=== PATIENT | female | born 1970 | race Caucasian/White ===

== ENCOUNTER → 2017-03-14 | Outpatient (CLI) | payer OTHER ==
--- NOTE | 2017-03-15 05:41 | RAD ---
Procedure: XR PELVIS 1-2 VIEWS Exam Date: 03/14/2017 Ordering Provider: ISELA CAUSEY MD Clinical Indication: HIP PAIN Comparison: 10/03/2011 FINDINGS: There is no fracture or dislocation. Articular surface of each hip is preserved. The sacroiliac joints are intact bilaterally. The pubic symphysis is normal. There are no lytic or sclerotic lesions. There are no suspicious calcifications. Impression: 1. Negative exam of the pelvis and each hip. Electronically signed by: Chuck Wolfe MD 03/15/2017 5:40 AM CDT
--- NOTE | 2017-03-15 09:13 | RAD ---
EXAM DESCRIPTION: Knee,Right Complete CLINICAL HISTORY: 46 years, Female, KNEE PAIN COMPARISON: None TECHNIQUE: Three views of the right knee FINDINGS: Right knee demonstrate severe degenerative joint narrowing involving the lateral joint compartment with subchondral sclerosis with moderate hypertrophic degenerative lipping at the patellofemoral articulation with relative sparing of the medial joint compartment. A small joint effusion is present. No fracture or dislocation is seen. IMPRESSION: 1. There are degenerative changes of the right knee, predominantly involving the lateral joint compartment. Electronically signed by: Kaden Starks MD 03/15/2017 9:11 AM CDT
== END | disposition home or self-care (01) ==
LOC: RAD 13:27
PROVIDERS: ATTEND Orthopaedic Surgery
DX: M25.561 Pain in right knee (principal); M25.552 Pain in left hip; M25.551 Pain in right hip

== ENCOUNTER → 2017-05-14 | Outpatient (CLI) | payer OTHER ==
--- NOTE | 2017-05-15 16:31 | MAM ---
EXAM DESCRIPTION: 3D Screening BILATERAL CLINICAL HISTORY: 46 yearsFemaleSCREENING . Premenopause.. COMPARISON: Baseline study at this facility.. No prior reports available. TECHNIQUE: Bilateral CC and MLO projection full-field images, 3-D tomosynthesis digital mammographic technique. Also bilateral synthesized CC/ MLO full-field images. CAD not utilized. FINDINGS: The breast parenchymal density pattern is: Scattered areas of fibroglandular density. No skin thickening or nipple retraction bilateral microcalcifications are solitary. No focal, stellate mass or density, focal asymmetry , and no suspicious microcalcifications bilaterally. IMPRESSION: BI-RADS CATEGORY: 2 - BENIGN FINDINGS. FOLLOW UP: Routine digital bilateral screening, one year interval from date Written communication explaining the findings and follow-up, will be mailed to the patient and referring health care provider. According to the [employer], yearly mammograms are recommended starting at age 40 and continuing as long as a woman is in good health. Any breast change noted on a breast self-exam should be reported promptly to the patient's healthcare provider. Breast MRI is recommended for women with an approximately 20-25% or greater lifetime risk of breast cancer, including women with a strong family history of breast or ovarian cancer and women who have been treated for Hodgkin's disease. A negative mammographic report should not delay tissue diagnosis in patients with significant clinical history or physical findings. Extremely dense breast tissue limits the sensitivity of digital mammography. Electronically signed by: Lewis Atkins MD 05/15/2017 4:29 PM CDT Workstation: [id number]
== END ==
LOC: MAMMO 13:30
PROVIDERS: ATTEND Nurse Practitioner Family
DX: Z12.31 Encounter for screening mammogram for malignant neoplasm of breast (principal)

== ENCOUNTER → 2017-08-13 | Outpatient (CLI) | payer OTHER | END | disposition home or self-care (01) | LOC: LAB.O 08:06 | PROVIDERS: ATTEND Nurse Practitioner Family | DX: Z00.00 Encounter for general adult medical examination without abnormal findings (principal); N92.6 Irregular menstruation, unspecified; Z13.29 Encounter for screening for other suspected endocrine disorder ==

== ENCOUNTER → 2019-08-11 | Outpatient (CLI) | payer BC | LOC: LAB.O 14:45 | PROVIDERS: ATTEND Internal Medicine | DX: M06.9 Rheumatoid arthritis, unspecified (principal); Z79.899 Other long term (current) drug therapy ==

== ENCOUNTER → 2020-01-26 | Outpatient (CLI) | payer BC | LOC: LAB.O 07:06 | PROVIDERS: ATTEND Nurse Practitioner | DX: M06.9 Rheumatoid arthritis, unspecified (principal) ==

== ENCOUNTER → 2020-04-14 | Outpatient (CLI) | payer BC ==
--- NOTE | 2020-04-20 14:21 | MAM ---
History: Well woman exam. Date of exam: 04/14/2020 Services provided: Bilateral full field digital screening mammography with tiffany. CAD, the images were reviewed with R2 computer aided detection. FINDINGS: Glandular tissue contains scattered areas of fibroglandular densities. Scattered glandular pattern with increased mammographic density. No prior study for comparison. Focal mammographic asymmetry retroareolar right breast at 6:00. No mammographic abnormality on the left. IMPRESSION: Incomplete study Recommendation: Spot compression views right breast. Directed ultrasound if indicated. BIRAD CATEGORY: 0 INCOMPLETE - Need additional imaging evaluation and/or prior mammograms for comparison. Exam findings and recommendations will be sent to the patient. Electronically signed by: Blanca Smith MD 04/20/2020 2:20 PM CDT Workstation: [id number]
== END ==
LOC: MAMMO 11:30
PROVIDERS: ATTEND Nurse Practitioner
DX: Z12.31 Encounter for screening mammogram for malignant neoplasm of breast (principal)

== ENCOUNTER → 2020-08-02 | Outpatient (CLI) | payer BC | LOC: LAB.O 09:30 | PROVIDERS: ATTEND Internal Medicine | DX: M06.9 Rheumatoid arthritis, unspecified (principal) ==

== ENCOUNTER → 2020-11-22 | Outpatient (CLI) | payer BC | LOC: LAB.NP 08:38 | PROVIDERS: ATTEND Internal Medicine | DX: M06.9 Rheumatoid arthritis, unspecified (principal) ==